=== PATIENT | male | born 1955 | race Caucasian/White ===

== ENCOUNTER 2020-09-04 13:45 | Inpatient (IN) | payer MEDICARE ==
[~2020-09-04] VITALS: Ht 182.9 cm; Wt 99.6 kg
[2020-09-04 15:15] LABS: BASOPHIL 0.3 % (0-2); EOSINOPHIL 0 % (0-7); HCT 42.2 % (42.0-52.0); HGB 14.8 g/dl (13.2-18.0); LYMPHOCYTE 8.9 % (15-48); MCH 30.7 pg (25.0-31.0); MCHC 35.1 g/dL (32.0-36.0); MCV 87.6 fL (78.0-100.0); MONOCYTE 8.4 % (0-12); MPV 8.7 fL (6.0-9.5); NEUTROPHIL 81.9 % (41-80); NRBC 0; PLT 135 K/uL (150-400); RBC 4.82 M/uL (4.70-6.00); RDW 12.4 % (11.5-14.0); WBC 3.7 K/uL (4.0-10.5)
[2020-09-04 15:36] LABS: LACTIC ACID 1.6 mmol/L (0.4-1.9)
[2020-09-04 15:37] LABS: BILIRUBIN NEGATIVE (NEGATIVE); BLOOD TRACE-INTACT Ery/uL (NEGATIVE); CLARITY CLEAR (CLEAR); COLOR YELLOW (YELLOW); GLUCOSE (U) NORMAL (NORMAL); LEUKOCYTES NEGATIVE Leu/uL (NEGATIVE); NITRITE NEGATIVE (NEGATIVE); PROTEIN TRACE (LOW) mg/dL (NEGATIVE); UROBILINOGEN 0.2 mg/dL (0.2-1.0)
[2020-09-04 15:41] LABS: ALBUMIN 3.4 g/dL (3.4-5.0); BILIRUBIN - TOTAL 0.5 mg/dL (0.2-1.0); BUN/CREAT RATIO (CALC) 19.7 RATIO; CREATININE 0.76 mg/dL (0.67-1.17); GLOBULIN (CALCULATION) 2.7 g/dL; POTASSIUM 3.9 mmol/L (3.5-5.1); TOTAL PROTEIN 6.1 g/dL (6.4-8.2)
[2020-09-04 15:52] LABS: BACTERIA 2+
[2020-09-04] MEDS ORDERED: BENZTROPINE MESY2 MG PO (23:39)
[2020-09-04] MEDS ORDERED: BUPROPION HCL150 M1 PO (23:40)
[2020-09-04] MEDS ORDERED: BUSPIRONE HCL10 MG PO (23:42)
[2020-09-04] MEDS ORDERED: GLIPIZIDE 5 MG (5 MG PO (23:53)
[2020-09-04] MEDS ORDERED: HALDOL5 MG PO (23:54)
[2020-09-04] MEDS ORDERED: PIOGLITAZONE HC30 MG PO (23:55)
[2020-09-04] MEDS ORDERED: METFORMIN HCL500 M3 PO (23:55)
[2020-09-04] MEDS ORDERED: PRAVASTATIN SOD20 MG PO (23:56)
[2020-09-05] MEDS ORDERED: CLOZAPINE100 MG PO (00:07)
[2020-09-05] MEDS ORDERED: LINZESS145 MCG PO ×2 (00:08→10:48)
[2020-09-05] MEDS ORDERED: OZEMPIC1 MG/0.75 SC ×2 (00:13→10:51)
[2020-09-05] MEDS ORDERED: INSULIN LI100 UNIT/1 SC (00:26)
[2020-09-05] MEDS ORDERED: OZEMPIC1 MG/0.71 SC (00:28)
[2020-09-05] MEDS ORDERED: PEG3350510 GM PO (00:28)
[2020-09-05 04:00] LABS: BASOPHIL 0 % (0-2); EOSINOPHIL 0 % (0-7); HCT 40.3 % (42.0-52.0); HGB 14.1 g/dl (13.2-18.0); MCH 31.2 pg (25.0-31.0); MCV 89.2 fL (78.0-100.0); MPV 8.6 fL (6.0-9.5); NEUTROPHIL 81.6 % (41-80); NRBC 0; PLT 117 K/uL (150-400); RBC 4.52 M/uL (4.70-6.00); RDW 12.5 % (11.5-14.0); WBC 2.4 K/uL (4.0-10.5)
[2020-09-05 04:29] LABS: CREATININE 0.76 mg/dL (0.67-1.17); POTASSIUM 3.3 mmol/L (3.5-5.1)
[2020-09-05] MEDS ORDERED: CLOZARIL100 MG PO (10:38)
[2020-09-05] MEDS ORDERED: GLUCOTROL5 MG PO (10:41)
[2020-09-05] MEDS ORDERED: HALDOL5 MG PO (10:46)
[2020-09-05] MEDS ORDERED: METFORMIN HCL500 MG PO (10:49)
[2020-09-05] MEDS ORDERED: ACTOS30 MG PO (11:01)
[2020-09-05] MEDS ORDERED: PRAVACHOL20 MG PO (11:02)
[2020-09-05] MEDS ORDERED: BUSPAR5 MG PO (11:04)
[2020-09-05] MEDS ORDERED: WELLBUTRIN PO (11:05)
[2020-09-05] MEDS ORDERED: BENZTROPINE PO (11:08)
[2020-09-05] MEDS ORDERED: OMNIPOD (11:09)
[2020-09-05] MEDS ORDERED: INSULIN PUMP (11:10)
[2020-09-05] MEDS ORDERED: MIRALAX17 GM PO (11:12)
[2020-09-05] MEDS ORDERED: OZEMPIC SC (11:15)
[2020-09-05] MEDS ORDERED: WELLBUTRIN SR150 MG PO (16:23)
--- NOTE | 2020-09-05 16:24 | NUR ---
PATIENT HAS INSULIN PUMP ALSO STATES NEW PODS AND CALLED HIS DOCTOR INFORMING HIM OF INSULIN PUMP NOT WORKING AND STATES THAT " SENT IN SCRIPT FOR NEW PODS THAT CAN BE PICKED UP TOMORROW" MD TYLER NOTIFIED AND ALSO OF BLOOD SUGAR 386. COVERED WITH 10 UNITS SSI. ALSO RECEIVED PO MEDS FOR DM. WILL MONITOR. MD TYLER STATES TO COVER PATIENT WITH SSI DURING STAY
[2020-09-06 05:56] LABS: BASOPHIL 0.1 % (0-2); EOSINOPHIL 0 % (0-7); HGB 15.8 g/dl (13.2-18.0); LYMPHOCYTE 6.1 % (15-48); MCH 30.6 pg (25.0-31.0); MCHC 33.6 g/dL (32.0-36.0); MCV 91.1 fL (78.0-100.0); MPV 9.1 fL (6.0-9.5); NEUTROPHIL 88.2 % (41-80); NRBC 0; PLT 158 K/uL (150-400); RBC 5.16 M/uL (4.70-6.00); RDW 12.4 % (11.5-14.0)
--- NOTE | 2020-09-06 05:59 | NUR ---
PT REFUSES TO KEEP TELEMETRY LEADS IN PLACE. [facility] STAFF HAVE REPLACED AND REPOSITIONED LEADES THROUGHOUT THE SHIFT. NURSE PROVIDED EDUCATION MULTIPLE TIMES. PT STILL REFUSES.
[2020-09-06 06:08] LABS: WBC 10.9 K/uL (4.0-10.5)
[2020-09-06 06:16] LABS: BUN/CREAT RATIO (CALC) 29.6 RATIO; C-REACTIVE PROTEIN 4.9 mg/dL (<=0.90); CREATININE 0.71 mg/dL (0.67-1.17); POTASSIUM 3.6 mmol/L (3.5-5.1)
[2020-09-06 06:18] LABS: MAGNESIUM 2.2 mg/dL (1.8-2.4)
--- NOTE | 2020-09-06 08:22 | NUR ---
0822 PATIENT FOUND TO BE IN BREATHING DISTRESS, BREATHING LABORED AND INCREASED SHORTNESS OF AIR, HEART RATE IS IN 105-115 AT THIS TIME, O2 SATS BETWEEN 86-88% AFTER SEVERAL ATTEMPTS TO BRING UP THE O2 SATS. O2 TO WAS INCREASED TO [address] TYLER OF THE INCREASED PROBLEMS WITH BREATHING. 0845 NEW ORDERS TO TRANSFER THIS PATIENT TO ICU. 0914 REPORT WAS GIVEN TO ALEXANDRA ROSS RN 0949 PATIENT WAS TRANSFERRED TO ICU VIA BED WITH STAFF. CONDITION WAS STABLE AT THE TIME OF THE TRANSFER.
--- NOTE | 2020-09-06 12:22 | NUR ---
09/06/20 Mr. Castro was living alone prior to admission. He was independent with mobility and ADL. Mr. Castro is independent with laundry and some meal preparation. His sisters visit frequently; housekeeping, taking him out to eat and shopping. A caregiver comes to the home 4 - 5 times per week. The caregiver cooking, performs housekeeping, and takes him out to eat. - Dr. Barrios is the PCP. Mr. Castro is also [facility] management of Schizophrenia.
--- NOTE | 2020-09-06 18:22 | NUR ---
PATIENT TRANSF[facility] M[facility]ING. CONTINUED TO EXPERIENCE TROUBLE BREATHING WITH WORSENING OF ABGS. INTUBATED AT 1200 SEDATED WITH DIPRIVAN AND FENTANYL AFTER INTUBATION.
--- NOTE | 2020-09-06 20:41 | NUR ---
BP ART LINE 79/46 MAP 59 BLOOD GLUCOSE 225 LINDA PANCHAL APRN CALLED, FENTANYL RATE CHANGED FROM 125MCG/HR TO 75MCG/HR LANTUS 15 UNITS HELD
[2020-09-07 04:09] LABS: BASOPHIL 0.1 % (0-2); EOSINOPHIL 0 % (0-7); HCT 38.4 % (42.0-52.0); HGB 13.1 g/dl (13.2-18.0); MCHC 34.1 g/dL (32.0-36.0); MONOCYTE 5.3 % (0-12); MPV 9.3 fL (6.0-9.5); NEUTROPHIL 87.9 % (41-80); NRBC 0; PLT 131 K/uL (150-400); RBC 4.22 M/uL (4.70-6.00); RDW 12.9 % (11.5-14.0); WBC 7.2 K/uL (4.0-10.5)
[2020-09-07 04:27] LABS: BUN/CREAT RATIO (CALC) 33.3 RATIO; CREATININE 0.72 mg/dL (0.67-1.17); MAGNESIUM 2.2 mg/dL (1.8-2.4); PHOSPHORUS 2.4 mg/dL (2.6-4.7); POTASSIUM 3.7 mmol/L (3.5-5.1)
[2020-09-08 05:53] LABS: BASOPHIL 0 % (0-2); EOSINOPHIL 0 % (0-7); HCT 39.5 % (42.0-52.0); HGB 13.4 g/dl (13.2-18.0); LYMPHOCYTE 4.5 % (15-48); MCH 30.9 pg (25.0-31.0); MCHC 33.9 g/dL (32.0-36.0); MCV 91.2 fL (78.0-100.0); MONOCYTE 5.9 % (0-12); MPV 9.4 fL (6.0-9.5); NEUTROPHIL 88.8 % (41-80); NRBC 0; PLT 147 K/uL (150-400); RBC 4.33 M/uL (4.70-6.00); WBC 6.7 K/uL (4.0-10.5)
[2020-09-08 06:52] LABS: ALBUMIN 2.6 g/dL (3.4-5.0); BILIRUBIN - TOTAL 0.6 mg/dL (0.2-1.0); C-REACTIVE PROTEIN 7.3 mg/dL (<=0.90); CREATININE 0.5 mg/dL (0.67-1.17); GLOBULIN (CALCULATION) 2.9 g/dL; MAGNESIUM 2.2 mg/dL (1.8-2.4); TOTAL PROTEIN 5.5 g/dL (6.4-8.2)
--- NOTE | 2020-09-08 12:50 | NUR ---
0800 DR CHIRINOS DECREASED PEEP DOWN FROM 12 TO 10 0830 PT SATS DROPPED BELOW 90, REMAINING BETWEEN 85%-88% AFTER SPEAKING WITH DR CHIRINOS PEEP WAS INCREASED BACK TO 12 PT BEGAN BITING ON ET TUBE AND 2MG OF VERSED WAS ORDERED AND ADMINISTERED PT WAS GIVEN 100% OF O2 FOR 2 MINUTES. DIPRIVAN WAS INCREASED TO 50MCG AND FENTYNAL WAS INCREASED TO 300MCG SAT REMAINED AROUND 88%-89% FIO2 ORDERED TO INCREASED TO 40% SATS AT 90%-91% 1030 PT SATS BEGAN TO DROP AND REMAIN AROUND 88%-89% PT WAS EXTREMELY LABORED USING ACCESSORY AND ABDOMINAL MUSCLES CHEST X RAY WAS READ CANDIS ORDERED FOR 40MG IV LASIX AND FIO2 WAS INCREASED TO 50% SATS REMAINED 90%-91% 1220 PT SATS DROPPED 87%-88% PT WAS REPOSITIONED BACK TO BACK SAT REMAINED THE SAME CANDIS ORDERED FOR FIO2 TO 70% PT REAMINING BETWEEN 92-93%
[2020-09-09 05:43] LABS: BASOPHIL 0.2 % (0-2); EOSINOPHIL 0 % (0-7); HCT 40.5 % (42.0-52.0); HGB 13.6 g/dl (13.2-18.0); LYMPHOCYTE 3.5 % (15-48); MCH 30.6 pg (25.0-31.0); MCHC 33.6 g/dL (32.0-36.0); MCV 91.2 fL (78.0-100.0); MONOCYTE 2.6 % (0-12); MPV 9.9 fL (6.0-9.5); NEUTROPHIL 92.9 % (41-80); NRBC 0; PLT 168 K/uL (150-400); RBC 4.44 M/uL (4.70-6.00); RDW 12.6 % (11.5-14.0)
[2020-09-09 06:08] LABS: ALBUMIN 2.3 g/dL (3.4-5.0); BILIRUBIN - TOTAL 0.5 mg/dL (0.2-1.0); BUN/CREAT RATIO (CALC) 52.2 RATIO; CREATININE 0.67 mg/dL (0.67-1.17); PHOSPHORUS 2.9 mg/dL (2.6-4.7); POTASSIUM 4.1 mmol/L (3.5-5.1); TOTAL PROTEIN 5.3 g/dL (6.4-8.2)
[2020-09-09 06:19] LABS: WBC 10.7 K/uL (4.0-10.5)
--- NOTE | 2020-09-09 15:28 | NUR ---
discussed patient's EN with TROY Osorio; recommendations to increased TF rate to 70cc/hr d/t Diprovan d/c'd; patient no longer receiving lipid kcals. increased rate will provide 2136 calories, 100g protein. cont with Proteinex 15 BID. for additional 30 g protein (total 130gram/day) RD received verbal order from MD Shore. this information relayed to Jo of order received 1520pm.
[2020-09-10 07:04] LABS: BASOPHIL 0.1 % (0-2); EOSINOPHIL 0 % (0-7); HCT 39.7 % (42.0-52.0); HGB 13.1 g/dl (13.2-18.0); LYMPHOCYTE 5.7 % (15-48); MCH 30.7 pg (25.0-31.0); MONOCYTE 6.3 % (0-12); MPV 9.8 fL (6.0-9.5); NEUTROPHIL 86.8 % (41-80); NRBC 0; PLT 211 K/uL (150-400); RBC 4.27 M/uL (4.70-6.00); RDW 12.7 % (11.5-14.0); WBC 9.6 K/uL (4.0-10.5)
[2020-09-10 07:36] LABS: ALBUMIN 2.4 g/dL (3.4-5.0); BILIRUBIN - TOTAL 0.4 mg/dL (0.2-1.0); BUN/CREAT RATIO (CALC) 68.8 RATIO; C-REACTIVE PROTEIN 6.1 mg/dL (<=0.90); CREATININE 0.64 mg/dL (0.67-1.17); MAGNESIUM 2.3 mg/dL (1.8-2.4); POTASSIUM 3.9 mmol/L (3.5-5.1); TOTAL PROTEIN 5.4 g/dL (6.4-8.2)
--- NOTE | 2020-09-10 18:38 | NUR ---
1645 CENTRAL LINE PLACED BY MD CHIRINOS,PROCEDURE WAS PREFORMED WITH STERILE TECHNIQUE, IN THE RIGHT IJ
--- NOTE | 2020-09-11 03:55 | NUR ---
0300VENT CHECK THIS AM, PATIENT IS BREATHING MORE AGONALY ON THE VENT. PATIENT IS BREATHING ALONG WITH THE VENTILATOR AND NO LONGER BREATH STACKING HE HAS PREVIOUSLY BEEN DOING. HR INCREASED TO 120s. RAMÓN SINGH NOTIFIED. PATIENT DOES HAVE AM ABG ORDERED. PATIENT DOES SUPRISINGLY HAVE MORE AIR MOVEMENT HEARD ON AUSCULTATION THAN PREVIOUSLY. FIO2 INCREASED TO 75% O2 APPEARED TO BE TRENDING DOWN
[2020-09-11 05:00] LABS: BASOPHIL 0.3 % (0-2); EOSINOPHIL 0 % (0-7); HGB 13.2 g/dl (13.2-18.0); LYMPHOCYTE 6.9 % (15-48); MCH 31.2 pg (25.0-31.0); MCHC 32.2 g/dL (32.0-36.0); MCV 96.9 fL (78.0-100.0); MONOCYTE 8.2 % (0-12); NEUTROPHIL 80.1 % (41-80); NRBC 0; PLT 233 K/uL (150-400); RBC 4.23 M/uL (4.70-6.00); WBC 8.8 K/uL (4.0-10.5)
[2020-09-11 05:21] LABS: ALBUMIN 2.4 g/dL (3.4-5.0); BILIRUBIN - TOTAL 0.4 mg/dL (0.2-1.0); BUN/CREAT RATIO (CALC) 63.6 RATIO; CREATININE 0.66 mg/dL (0.67-1.17); POTASSIUM 5.3 mmol/L (3.5-5.1); TOTAL PROTEIN 5.4 g/dL (6.4-8.2)
--- NOTE | 2020-09-11 06:07 | NUR ---
AM ABG OBTAINED. PATIENT MORE ACIDOTIC THIS AM, PATIENT HAS NOT BEEN ACIDOTIC ON ANY PREVIOUS ABGS. PATIENT HAS HAD INCREAING LABORED AGONAL BREATHING ON VENT THIS AM. ABG THIS AM 7.303/69.5/70.0 PO2/34.4/92% ON VT450, RATE 20, 75%, +12 ABG RESULTS SHOWN TO ABBY SINGH AND DISCUSSED VT INCREASED TO 550 AND RATE TO 22. BREATHING HAS EASED SOME. PATIENT HAS BEEN SUCTIONED WITH NO SECRETIONS. WAVEFORMS ARE SYCHRONOUS WITH VENT. HR STIL ELEVATED IN 120s AND BP ELEVATED. PATIENT DID HAVE 99.9 TEMP THIS AM. NO WHEEZES, CLEAR TO DIMINISHED BREATH SOUNDS. TROY PLUMMER TOLD OF VENT SETTING CHANGES. AWAIT FURTHER ORDERS.
[2020-09-12 03:58] LABS: BASOPHIL 0.5 % (0-2); EOSINOPHIL 0 % (0-7); HCT 41.2 % (42.0-52.0); HGB 13.3 g/dl (13.2-18.0); LYMPHOCYTE 13.1 % (15-48); MCH 30.6 pg (25.0-31.0); MCHC 32.3 g/dL (32.0-36.0); MCV 94.9 fL (78.0-100.0); MONOCYTE 7.5 % (0-12); MPV 9.6 fL (6.0-9.5); NEUTROPHIL 72.7 % (41-80); NRBC 0.3; PLT 230 K/uL (150-400); RBC 4.34 M/uL (4.70-6.00); RDW 12.7 % (11.5-14.0)
[2020-09-12 04:27] LABS: BUN/CREAT RATIO (CALC) 59.2 RATIO; CREATININE 0.71 mg/dL (0.67-1.17); POTASSIUM 4.5 mmol/L (3.5-5.1)
--- NOTE | 2020-09-12 11:16 | NUR ---
AYUSH HIS SISTER CALLED AND SHE WAS UPDATED ON HIS CONDITION,VITALS STABLE STILL ON THE VENT SATTING 95%.
[2020-09-13 04:24] LABS: BASOPHIL 0.2 % (0-2); EOSINOPHIL 0 % (0-7); HCT 42.9 % (42.0-52.0); HGB 13.9 g/dl (13.2-18.0); LYMPHOCYTE 11.1 % (15-48); MCH 30.8 pg (25.0-31.0); MCHC 32.4 g/dL (32.0-36.0); MCV 95.1 fL (78.0-100.0); MONOCYTE 6.6 % (0-12); MPV 9.6 fL (6.0-9.5); NEUTROPHIL 78.5 % (41-80); NRBC 0.2; PLT 224 K/uL (150-400); RBC 4.51 M/uL (4.70-6.00); RDW 12.8 % (11.5-14.0)
[2020-09-13 04:37] LABS: BUN/CREAT RATIO (CALC) 64.1 RATIO; CREATININE 0.64 mg/dL (0.67-1.17); POTASSIUM 4.5 mmol/L (3.5-5.1)
[2020-09-14 06:02] LABS: BASOPHIL 0.2 % (0-2); EOSINOPHIL 0.1 % (0-7); HCT 44.1 % (42.0-52.0); HGB 14.3 g/dl (13.2-18.0); LYMPHOCYTE 10.7 % (15-48); MCH 31.2 pg (25.0-31.0); MCHC 32.4 g/dL (32.0-36.0); MCV 96.1 fL (78.0-100.0); MONOCYTE 4.9 % (0-12); MPV 9.8 fL (6.0-9.5); NEUTROPHIL 81.1 % (41-80); NRBC 0; PLT 197 K/uL (150-400); RBC 4.59 M/uL (4.70-6.00); RDW 12.7 % (11.5-14.0); WBC 9.2 K/uL (4.0-10.5)
[2020-09-14 06:41] LABS: BUN/CREAT RATIO (CALC) 86.2 RATIO; C-REACTIVE PROTEIN 0.6 mg/dL (<=0.90); CREATININE 0.58 mg/dL (0.67-1.17); MAGNESIUM 2.2 mg/dL (1.8-2.4); POTASSIUM 4.2 mmol/L (3.5-5.1)
--- NOTE | 2020-09-14 14:33 | NUR ---
09/14/20 Recommendations were made for [facility] to be sought. Morenita Lanier, sister, [phone], has agreed to seek transfer to [facility]. A referral has been made to [facility].
[2020-09-15 04:51] LABS: BUN 47 mg/dL (7-18); BUN/CREAT RATIO (CALC) 78.3 RATIO; C-REACTIVE PROTEIN <0.20 mg/dL (<=0.90); CHLORIDE 111 mmol/L (98-107); CO2 (BICARBONATE) 42 mmol/L (21-32); GLUCOSE 102 mg/dL (74-106)
[2020-09-16 04:24] LABS: BASOPHIL 0.1 % (0-2); EOSINOPHIL 0 % (0-7); HCT 40.4 % (42.0-52.0); LYMPHOCYTE 11.6 % (15-48); MCHC 32.2 g/dL (32.0-36.0); MCV 96.4 fL (78.0-100.0); MONOCYTE 5.9 % (0-12); MPV 10.2 fL (6.0-9.5); NEUTROPHIL 81.5 % (41-80); NRBC 0; PLT 179 K/uL (150-400); RBC 4.19 M/uL (4.70-6.00); WBC 7.8 K/uL (4.0-10.5)
[2020-09-16 04:38] LABS: BUN/CREAT RATIO (CALC) 82.7 RATIO; CREATININE 0.52 mg/dL (0.67-1.17)
[2020-09-17 06:19] LABS: BUN/CREAT RATIO (CALC) 72.3 RATIO; CREATININE 0.47 mg/dL (0.67-1.17); POTASSIUM 3.5 mmol/L (3.5-5.1)
--- NOTE | 2020-09-17 08:41 | NUR ---
PATIENT RESTLESS, OPENING EYES AND FITGHTING VENT. DR TYLER AWARE, VERBAL ORDER TO RESTART PRECEDEX @ 0.2MCG/5.6ML HR TO HELP PATIENT RELAX. RESTARTED AT 0825
--- NOTE | 2020-09-17 11:08 | NUR ---
899 PRECEDEX D/C'D PER DR TYLER. RT AT BEDSIDE, PATIENT EXTUBATED AT 903 AND PLACED ON 3L NC, UNABLE TO KEEP O2 SAT ABOVE 87%, PATIENT GIVEN DUONEB PER RT AND SUCTIONED. 944 PATIENT PLACED ON BIPAP PER RT. O2 SAT 99%
--- NOTE | 2020-09-17 20:09 | NUR ---
PATIENT O2 SAT WAS 89% ON 100% NRB WHEN RT ENTERED FOR FIRST ASSESSMENT INSP WHEEZES IN UPPER LOBES. 1999 ABG THAT WAS ORDERED OBTAINED VIA RT RADIAL FREDO. PATIENT SHOWN TO HAVE PO2 OF 44.4, RESULTS VERBALLY GIVEN TO SUSAN NGO RN AND PATIENT PLACED ON BIPAP SETTINGS PER NAYELI MARTINEZ ORDERS. 19/06, RATE 20 AND INCREASED FIO2 TO 100% PATIENT LOWEST DESAT TO 82% AND CURRENTLY 97%. DUONEB GIVEN INLINE WITH BIPAP AND WHEEZES IMPROVED. CONTINUE TO MONITOR PATIENT
[2020-09-18 05:42] LABS: BASOPHIL 0.2 % (0-2); EOSINOPHIL 0 % (0-7); HCT 37.4 % (42.0-52.0); HGB 12.8 g/dl (13.2-18.0); LYMPHOCYTE 8.3 % (15-48); MCH 31.4 pg (25.0-31.0); MCHC 34.2 g/dL (32.0-36.0); MONOCYTE 4.7 % (0-12); MPV 10.2 fL (6.0-9.5); NEUTROPHIL 86.1 % (41-80); NRBC 0; PLT 176 K/uL (150-400); RBC 4.08 M/uL (4.70-6.00); RDW 12.9 % (11.5-14.0); WBC 10.5 K/uL (4.0-10.5)
[2020-09-18 05:44] LABS: MCV 91.7 fL (78.0-100.0)
[2020-09-18 06:00] LABS: ALBUMIN 2.2 g/dL (3.4-5.0); BILIRUBIN - TOTAL 0.8 mg/dL (0.2-1.0); BUN/CREAT RATIO (CALC) 47.4 RATIO; CREATININE 0.57 mg/dL (0.67-1.17); GLOBULIN (CALCULATION) 2.5 g/dL; POTASSIUM 2.6 mmol/L (3.5-5.1); TOTAL PROTEIN 4.7 g/dL (6.4-8.2)
[2020-09-18 09:25] LABS: PRO-BNP 146 pg/mL (<125)
[2020-09-19 05:45] LABS: BUN 32 mg/dL (7-18); BUN/CREAT RATIO (CALC) 52.5 RATIO; C-REACTIVE PROTEIN < 0.20 mg/dL (<=0.90); CHLORIDE 106 mmol/L (98-107); CO2 (BICARBONATE) 32 mmol/L (21-32); CREATININE 0.61 mg/dL (0.67-1.17); GLUCOSE 86 mg/dL (74-106); POTASSIUM 2.8 mmol/L (3.5-5.1)
[2020-09-20 05:12] LABS: BUN/CREAT RATIO (CALC) 62.9 RATIO; CREATININE 0.62 mg/dL (0.67-1.17); POTASSIUM 3.8 mmol/L (3.5-5.1)
[2020-09-20 14:56] LABS: INR 1.3 (0.9-1.2); PROTHROMBIN TIME 15.5 SECONDS (11.8-13.4)
[2020-09-20 14:57] LABS: PTT 30.1 SECONDS (24.4-34.7)
[2020-09-20 15:13] LABS: ALBUMIN 2.6 g/dL (3.4-5.0); BILIRUBIN - TOTAL 1.4 mg/dL (0.2-1.0); BUN/CREAT RATIO (CALC) 62.5 RATIO; CREATININE 0.64 mg/dL (0.67-1.17); GLOBULIN (CALCULATION) 2.9 g/dL; MAGNESIUM 2.1 mg/dL (1.8-2.4); POTASSIUM 3.5 mmol/L (3.5-5.1); TOTAL PROTEIN 5.5 g/dL (6.4-8.2)
[2020-09-21 04:20] LABS: BASOPHIL 0.6 % (0-2); EOSINOPHIL 0 % (0-7); HCT 39.6 % (42.0-52.0); LYMPHOCYTE 7.5 % (15-48); MCH 30.7 pg (25.0-31.0); MCHC 32.8 g/dL (32.0-36.0); MCV 93.6 fL (78.0-100.0); MPV 9.3 fL (6.0-9.5); NEUTROPHIL 86.5 % (41-80); NRBC 0; PLT 194 K/uL (150-400); RBC 4.23 M/uL (4.70-6.00); RDW 13.8 % (11.5-14.0); WBC 7.2 K/uL (4.0-10.5)
[2020-09-21 04:42] LABS: ALBUMIN 2.4 g/dL (3.4-5.0); BILIRUBIN - TOTAL 1.2 mg/dL (0.2-1.0); BUN/CREAT RATIO (CALC) 49.4 RATIO; CREATININE 0.79 mg/dL (0.67-1.17); GLOBULIN (CALCULATION) 2.9 g/dL; PHOSPHORUS 2.7 mg/dL (2.6-4.7); POTASSIUM 3.7 mmol/L (3.5-5.1); TOTAL PROTEIN 5.3 g/dL (6.4-8.2)
--- NOTE | 2020-09-21 12:49 | NUR ---
Spoke with patients family they stated that it is okay to reintubate patient.
--- NOTE | 2020-09-21 16:28 | NUR ---
1620 REMOVED FREDO.MD CHIRINOS AWARE
[2020-09-22 05:05] LABS: BASOPHIL 0.5 % (0-2); EOSINOPHIL 0.2 % (0-7); HCT 48.2 % (42.0-52.0); HGB 15.7 g/dl (13.2-18.0); LYMPHOCYTE 4.8 % (15-48); MCH 30.8 pg (25.0-31.0); MCHC 32.6 g/dL (32.0-36.0); MCV 94.7 fL (78.0-100.0); MPV 9.6 fL (6.0-9.5); NEUTROPHIL 91.5 % (41-80); NRBC 0; PLT 180 K/uL (150-400); RBC 5.09 M/uL (4.70-6.00); RDW 13.8 % (11.5-14.0); WBC 9.2 K/uL (4.0-10.5)
[2020-09-22 05:16] LABS: BUN/CREAT RATIO (CALC) 69.5 RATIO; CREATININE 0.59 mg/dL (0.67-1.17); MAGNESIUM 2.2 mg/dL (1.8-2.4); POTASSIUM 4.3 mmol/L (3.5-5.1)
--- NOTE | 2020-09-22 19:49 | NUR ---
1941 FAMILY OF MR. JANELL MCELROY CAME TO UNIT TO VIEW THE PT. FROM THE WINDOW. HOME FOR ARRANGEMENTS ARE TO BE MADE AT [facility]. PT. BELONGINGS WERE OFFERED TO FAMILY (SISTER-GAMA). MATTIERN
--- NOTE | 2020-09-22 22:42 | NUR ---
PT. LEFT FACILITY AT 2225 WITH HOME PERSONNEL. ER,RN
== END 2020-09-22 22:25 | disposition expired | DRG 870 ==
LOC: FER 13:45 → FMS 18:13 → FICU 09-06 08:58
PROVIDERS: Emergency Medicine; Internal Medicine; Nurse Practitioner; ADMIT Allergy & Immunology Allergy
PROC: 8E0ZXY6 Isolation (ICD-10-PCS; 2020-09-04)
PROC: XW033E5 Introduction of Remdesivir Anti-infective into Peripheral Vein, Percutaneous Approach, New Technology Group 5 (ICD-10-PCS; 2020-09-04)
PROC: 5A1955Z Respiratory Ventilation, Greater than 96 Consecutive Hours (ICD-10-PCS; principal; 2020-09-06)
PROC: 0BH18EZ Insertion of Endotracheal Airway into Trachea, Via Natural or Artificial Opening Endoscopic (ICD-10-PCS; 2020-09-06)
PROC: 03HY32Z Insertion of Monitoring Device into Upper Artery, Percutaneous Approach (ICD-10-PCS; 2020-09-06)
PROC: 5A0935A Assistance with Respiratory Ventilation, Less than 24 Consecutive Hours, High Flow/Velocity Cannula (ICD-10-PCS; 2020-09-06)
PROC: XW033H5 Introduction of Tocilizumab into Peripheral Vein, Percutaneous Approach, New Technology Group 5 (ICD-10-PCS; 2020-09-07)
PROC: 05HM33Z Insertion of Infusion Device into Right Internal Jugular Vein, Percutaneous Approach (ICD-10-PCS; 2020-09-10)
PROC: B543ZZA Ultrasonography of Right Jugular Veins, Guidance (ICD-10-PCS; 2020-09-10)
PROC: 5A09457 Assistance with Respiratory Ventilation, 24-96 Consecutive Hours, Continuous Positive Airway Pressure (ICD-10-PCS; 2020-09-19)
PROC: 5A0945A Assistance with Respiratory Ventilation, 24-96 Consecutive Hours, High Flow/Velocity Cannula (ICD-10-PCS; 2020-09-19)
PROC: 0BH17EZ Insertion of Endotracheal Airway into Trachea, Via Natural or Artificial Opening (ICD-10-PCS; 2020-09-22)
DX: A41.89 Other specified sepsis (principal); U07.1 COVID-19; J12.82 Pneumonia due to coronavirus disease 2019; J96.01 Acute respiratory failure with hypoxia; G93.41 Metabolic encephalopathy; J15.3 Pneumonia due to streptococcus, group B; J15.6 Pneumonia due to other Gram-negative bacteria; J15.0 Pneumonia due to Klebsiella pneumoniae; J98.11 Atelectasis; E87.0 Hyperosmolality and hypernatremia; E87.3 Alkalosis; R65.20 Severe sepsis without septic shock; I46.9 Cardiac arrest, cause unspecified; Z66 Do not resuscitate; L89.312 Pressure ulcer of right buttock, stage 2; I10 Essential (primary) hypertension; E78.5 Hyperlipidemia, unspecified; I35.0 Nonrheumatic aortic (valve) stenosis; E11.65 Type 2 diabetes mellitus with hyperglycemia; F20.9 Schizophrenia, unspecified; E87.70 Fluid overload, unspecified; K59.03 Drug induced constipation; T40.2X5A Adverse effect of other opioids, initial encounter; Z87.891 Personal history of nicotine dependence; Z98.890 Other specified postprocedural states; Z78.1 Physical restraint status
CPT/HCPCS: 31500; 36415; 36600; 70450; 71045; 74022; 80048; 80053; 80202; 81001; 82150; 82728; 82803; 82962; 83036; 83605; 83735; 83880; 84100; 84145; 84484; 85025; 85610; 85730; 86140; 87040; 87070; 87077; 87088; 87186; 87205; 87880; 92950; 93005; 94002; 94010; 94640; 94660; 94667; 94668; C9113; C9399; J0330; J0610; J0692; J1100; J1630; J1650; J1940; J2060; J2250; J2270; J2370; J2704; J2930; J3010; J3262; J3475; J3480; J7030; J7040; J7050; J7070; J7120; J8540; P9046; U0002